=== PATIENT | female | born 1950 | race Caucasian/White ===

== ENCOUNTER → 2024-04-08 | Outpatient (CLI) | payer MEDICARE, OTHER ==
[~2024-04-08] MED LIST: ALBU2.5V10
== END ==
LOC: M RAD 09:53
PROVIDERS: ATTEND Internal Medicine Medical Oncology
DX: C50.912 Malignant neoplasm of unspecified site of left female breast (principal); R59.9 Enlarged lymph nodes, unspecified

== ENCOUNTER → 2024-07-18 | Outpatient (CLI) | payer MEDICARE, OTHER | LOC: M WHC 08:41 | PROVIDERS: ATTEND Internal Medicine Medical Oncology | DX: C50.919 Malignant neoplasm of unspecified site of unspecified female breast (principal); R59.0 Localized enlarged lymph nodes ==